=== PATIENT | male | born 1990 | race American Indian/Alaskan Native ===

== ENCOUNTER 2017-02-01 19:05 | Emergency (ER) | payer SELFPAY ==
[2017-02-01 23:12] VITALS: BP 118/79
--- NOTE | 2017-02-02 08:51 | XRay Report ---
RIGHT FOOT, 3 views: History: Pain and swelling. The bony architecture is intact. Bony alignment is normal. No soft tissue abnormalities are seen. The joint spaces appear preserved. IMPRESSION: Normal right foot.
--- NOTE | 2017-02-04 15:38 | ED Elopement Review ---
ED Pt Elopement review - Call Back decision Pt Call Back Decision: No action required
== END 2017-02-02 06:25 ==
LOC: ED 19:05
DX: R22.41 Localized swelling, mass and lump, right lower limb (principal); Z53.21 Procedure and treatment not carried out due to patient leaving prior to being seen by health care provider